=== PATIENT | female | born 1960 | race Caucasian/White ===

== ENCOUNTER → 2016-12-22 | Outpatient (CLI) | payer MEDICARE, MEDICAID ==
[~2016-12-22] MED LIST: ADVAIR 250/5028 PUFF IN; ATIVAN1 M1 PO; AVPAK PRIMIDONE50 MG PO; CARVEDILOL25 MG PO; CRESTOR40 MG PO; DULOXETINE HYDR60 MG PO; FLUOXETINE HYDR20 MG PO; FUROSEMIDE 40MG40 M1 PO; GABAPENTIN800 MG PO; IPRATROPIUM 2.2.5 ML INH; ISOSORBIDE MONO30 MG PO; LISINOPRIL2.5 M1 PO; MULTIVITAMIN1 TA2 PO; NITROGLYCERIN0.4 MG SL; POTASSIUM CHLO10 ME1 PO; TOPIRAMATE50 MG PO; VITAMIN D32000 I2 PO; VITAMIN D50000 IU PO; XOPENEX HF0.045 MG/A IH; ZITHROMAX Z-PA250 M1 PO
--- NOTE | 2016-12-23 15:19 | RADIOLOGY REPORT PS360 ---
MRI-L-SPINE W/O, MRI-3D RENDERING/MYELOGRAM Ordering Physician: Aj Stanford MD Patient Age: 56 years: Female HISTORY: SCIATICA, LEFT SIDEleft hip and low back pain bilateral leg pain numbness tingling symptoms for years TECHNIQUE: Sagittal STIR, T1, T2, axial T1 and T2. On 1.5T Siemens wide bore MRI. 3-D MR myelogram image set obtained & performed on MRI workstation. Additional sagittal thin section T2 weighted dataset obtained from this latter acquisition as well (---76 CPT) FINDINGS The vertebral bodies are intact with no compression fractures nor lesions evident L5/S1. Disc herniation,/ disc extrusion moderate-sized the left of midline. This extends 6 mm posterior & does prominently indent thecal sac on left. This disc herniation displaced the left S1 nerve rootletwithin the thecal sac, with pronounced encroachment left lateral recess.. The disc herniation may also impact the left S2 nerve root where prominently indents the left thecal sac. Clinical correlation required.. Warrants neurosurgical consultation*. Mild to moderate facet hypertrophy also evident and contributes to encroachment upon the left recess and foramen. Moderate left foraminal encroachment. L4/5. Moderately pronounced Central canal stenosis due to combination of features. Prominent/exuberant bilateral facet hypertrophy & ligamentum flavum hypertrophy narrowing spinal canal. Also Diffuse disc bulge w/additional foraminal disc bulge.. Slight additional disc bulge & minor protrusion at far lateral left foramen.. Bilateral foraminal encroachment, left >right. Slightly more Generous left foraminal encroachment which impinges upon Left L4 nerve root sleeve as exits the left foramen..(sagittal image 13, axial image 26). L3/4.: Bilateral foraminal disc bulge most evident to the right. Additional broad-based disc bulge/, broad-based disc protrusion to the right yields prominent right recess and foraminal encroachment.. Prominent facet hypertrophy right greater than left also contributes.. These features combine to yield moderately pronounced central canal stenosis 3-D MRI myelogram image set shows a lateral tapering of the spinal canal at both L3/4 and L4/5 due to the facet hypertrophy. The distal disc bulge to the right at L3/4 noted also the disc protrusion the left at T11/12 believe is vaguely evident on this 3-D myelogram image set L2/3 disc intact minor disc bulge slightly more evident right on axial images. Only slightly effaces thecal sac to the right.. Minimal. Mild facet hypertrophy also noted. L1/2 disc intact unremarkable... T12/L1. Disc intact. T11/12. Leftward disc protrusion which effaces the thecal sac to left. Encroaches upon left lateral recess & left foramen ...... IMPRESSION: Multilevel disc findings, along with facet hypertrophy lower L-spine. Most significant findings: L5/S1.: Leftward disc herniation, moderate-sized. Warrants Neurosurgical Consult* . L4/5. Spinal stenosis-moderately pronounced & most evident at this level. Due to Exuberant facet/posterior element hypertrophy, along with disc bulge. Moderate/generous Bilateral foraminal encroachment, left greater than right. Slight additional disc bulge at left foramen L3/4:. Moderate spinal stenosis. Right foraminal & recess encroachment Exuberant facet hypertrophy along with eccentric disc bulge to the right-yield the central canal stenosis. Recess & foraminal encroachment bilateral, most pronounced to the right T11/12. Moderate disc protrusion to the left- indents thecal sac and encroaches upon left foramen
== END ==
LOC: RAD 09:10
DX: M54.32 Sciatica, left side (principal)